=== PATIENT | female | born 1990 | race African-American/Black ===

== ENCOUNTER 2018-03-05 23:56 | Observation (INO) | payer MEDICAID ==
[~2018-03-05] VITALS: Ht 162.6 cm; Wt 72.6 kg
[2018-03-06] MEDS ORDERED: ACETAMINOPHEN 500MG TABLET PO NR (00:45)
[2018-03-06 00:52] LABS: CLARITY URINE CLOUDY (CLEAR); COLOR URINE YELLOW (YELLOW); KETONES URINE NEGATIVE (NEGATIVE); LEUKOCYTE ESTERASE URINE NEGATIVE (NEGATIVE); NITRITE URINE NEGATIVE (NEGATIVE); OCCULT BLOOD URINE NEGATIVE (NEGATIVE); PH URINE 5.5 (4.5-8.0); PROTEIN URINE NEGATIVE (NEGATIVE); SPECIFIC GRAVITY URINE 1.031 (1.005-1.030); UROBILINOGEN URINE 0.2 E.U./dL (0.2-1.0)
[2018-03-06] MEDS ORDERED: PNV1TABL50 MT (01:22)
== END 2018-03-06 01:35 | disposition home or self-care (01) ==
LOC: L&D 23:56
PROVIDERS: ADMIT Obstetrics & Gynecology; ATTEND Obstetrics & Gynecology
DX: O26.892 Other specified pregnancy related conditions, second trimester (principal); R10.9 Unspecified abdominal pain; M54.5 Low back pain; Z3A.25 25 weeks gestation of pregnancy
CPT/HCPCS: 81003; 99281; G0378

== ENCOUNTER 2018-05-27 16:56 | Observation (INO) | payer MEDICAID ==
[~2018-05-27] VITALS: Ht 167.6 cm; Wt 80.3 kg
[~2018-05-27 16:56] MED LIST: PNV1TABL50 MT
== END 2018-05-27 18:20 | disposition home or self-care (01) ==
LOC: 8 EST LDRP 16:56
PROVIDERS: ADMIT Obstetrics & Gynecology; ATTEND Obstetrics & Gynecology
DX: O26.893 Other specified pregnancy related conditions, third trimester (principal); R10.9 Unspecified abdominal pain; Z3A.36 36 weeks gestation of pregnancy
CPT/HCPCS: 99281; G0378